=== PATIENT | female | born 1975 | race Caucasian/White ===

== ENCOUNTER → 2023-08-20 07:51 | Outpatient (CLI) | payer BC, SELFPAY ==
--- NOTE | ~2023-08-20 | US_ITS ---
EXAMINATION: US soft tissue head and neck DATE: 08/20/2023 08:16 INDICATION: Enlarged left cervical lymph nodes and fatigue TECHNIQUE: Multiple grayscale and Doppler ultrasound images of the neck were obtained. COMPARISON: None FINDINGS: There are a couple normal sized and appearing hypoechoic lymph nodes in the left cervical region of c oncern which measure 4 mm and 3 mm in maximal short axis diameters. No evident pathologically enlarge d lymphadenopathy or other abnormal masses or fluid collections identified at the region of concern. The right thyroid lobe measures 5.0 x 1.3 x 1.5 cm and the left thyroid lobe measures 5.0 x 1.2 x 1.4 cm. There is a 1.9 cm wider than tall mixed solid and cystic nodule with isoechoic solid component a t the lower pole of the left thyroid which demonstrates smooth margins, prominent internal vascular f low on color Doppler and no echogenic foci (TI-RADS 2, not suspicious, no FNA recommended). 1.1 cm so lid wider than tall hypoechoic nodule with smooth well-defined margins and peripheral echogenic poten tially calcified rim at the inferior left thyroid (TI-RADS 4, moderately suspicious , FNA if >=1.5 cm , annual followup is >=1 cm). Finally there is a 5 mm TI-RADS 1 cystic lesion at the more superficial inferior right thyroid lobe. IMPRESSION: 1. A couple normal-sized right cervical lymph nodes at the region of concern. 2. A few thyroid nodules and would recommend annual ultrasound follow-up of the 1.1 cm TI RADS 4 nodu le at the inferior right thyroid. Reviewed, dictated and finalized at location A. [facility] IMPRESSION: 1. A couple normal-sized right cervical lymph nodes at the region of concern. 2. A few thyroid nodules and would recommend annual ultrasound follow-up of the 1.1 cm TI RADS 4 nodule at the inferior right thyroid.
== END ==
PROVIDERS: PCP Nurse Practitioner; Visit Provider Nurse Practitioner
DX: R59.0 Localized enlarged lymph nodes (principal); E04.2 Nontoxic multinodular goiter
CPT/HCPCS: 76536

== ENCOUNTER 2024-12-22 11:24 | Outpatient (CLI) | payer BC, SELFPAY ==
--- NOTE | ~2024-12-22 | US_ITS ---
EXAMINATION: US soft tissue head and neck DATE: 12/22/2024 11:50 INDICATION: Palpable abnormality within the left neck TECHNIQUE: Multiple ultrasound images of the soft tissues of the neck were obtained (including the th yroid gland (. COMPARISON: 08/20/2023 FINDINGS: The right thyroid lobe measures 5.2 x 1.7 x 1.4 cm. Within the right lobe of the thyroid gland is a 9.1 x 8.9 x 7.2 mm nodule: Composition - spongiform Echogenicity -hyperechoic and isoechoic (1) Shape - wider than tall Margin - smooth Echogenic foci - none. = TR 1, benign. The left thyroid lobe measures 5.3 x 1.7 x 1.2 cm. Within the left lobe of the thyroid gland is a 18.6 x 12.5 x 14.4 mm nodule: Composition -mixed cystic and solid (1) Echogenicity -hyperechoic and isoechoic (1) Shape - wider than tall Margin - smooth Echogenic foci - none. = TR 2, not suspicious. No FNA The isthmus measures 0.2cm in anterior to posterior dimension. There is otherwise normal echotexture and echogenicity throughout the remainder of the thyroid gland. No additional discrete nodules identified. Normal vascular flow is present. Within the area of palpable concern is an intradermal anechoic focus measuring 3.2 x 1.7 x 3.2 mm. In addition within the soft tissues of the left neck is an anechoic avascular well-circumscribed oval -shaped focus measuring 4.8 x 2.6 x 4.2 mm. Increased through transmission is present, consistent wit h a small cyst. IMPRESSION: TR2 nodule in the left lobe of the thyroid gland measuring 18.6 mm in greatest dimension. This nodule is not sonographically suspicious and no FNA or follow-up is recommended. TR 1 nodule within the right lobe of the thyroid gland measuring 9.1 mm for which no further follow-u p is needed. Subcentimeter sebaceous cyst within the area of palpable concern for which no further follow-up is ne eded. Additional cystic focus intervening within the musculature of the left neck, corresponding to the add itional area of palpable concern within the left neck, which demonstrates benign sonographic morpholo gy for which no further follow-up is needed. Reviewed, dictated and finalized at location A. IMPRESSION: TR2 nodule in the left lobe of the thyroid gland measuring 18.6 mm in greatest dimension. This nodule is not sonographically suspicious and no FNA or follow-up is recomm ended. TR 1 nodule within the right lobe of the thyroid gland measuring 9.1 mm for whi ch no further follow-up is needed. Subcentimeter sebaceous cyst within the area of palpable concern for which no f urther follow-up is needed. Additional cystic focus intervening within the musculature of the left neck, co rresponding to the additional area of palpable concern within the left neck, wh ich demonstrates benign sonographic morphology for which no further follow-up i s needed.
== END 2024-12-22 11:25 | disposition home or self-care (01) ==
LOC: MICIMG 11:24
PROVIDERS: PCP Nurse Practitioner; Visit Provider Nurse Practitioner
DX: E04.2 Nontoxic multinodular goiter (principal); R59.0 Localized enlarged lymph nodes
CPT/HCPCS: 76536